=== PATIENT | male | born 1935 | race Caucasian/White ===

== ENCOUNTER 2022-08-31 03:59 | Day surgery (SDC) | payer BC, OTHER ==
[2022-08-30 12:05] VITALS: BMI 27.7
[~2022-08-31 03:59] MED LIST: BUPIVACAINE HCL/PF 0.5% (5MG/ML) 10 ML VIAL IJ ONE; LIDOCAINE HCL 1%, 10 MG/ML (20ML VIAL) NR ONE
[2022-08-31 06:29] VITALS: RESP 20
[2022-08-31] MEDS ORDERED: SUCCINYLCHOLINE CHLORIDE 200 MG/10 ML SYRINGE ONE (07:28)
[2022-08-31] MEDS ORDERED: LIDOCAINE HCL/PF (2%) 40 MG/2 ML VIAL ONE (07:28)
[2022-08-31] MEDS ORDERED: MIDAZOLAM HCL 2 MG/2 ML SINGLE DOSE VIAL ONE (07:28)
[2022-08-31] MEDS ORDERED: PROPOFOL 20 ML ONE (07:28)
[2022-08-31] MEDS ORDERED: LIDOCAINE HCL 1%, 10 MG/ML (20ML VIAL) ONE ×2 (07:30→09:17)
[2022-08-31] MEDS ORDERED: BUPIVACAINE HCL/PF 0.5% (5MG/ML) 10 ML VIAL ONE ×2 (07:30→09:17)
[2022-08-31] MEDS ORDERED: BUPIVACAINE HCL/PF 0.5% (5MG/ML) 10 ML VIAL IJ ONE (08:09)
[2022-08-31] MEDS ORDERED: LIDOCAINE HCL 1%, 10 MG/ML (20ML VIAL) NR ONE (08:09)
[2022-08-31] MEDS ORDERED: ceFAZolin SODIUM 1 GM VIAL ONE (08:15)
[2022-08-31] MEDS ORDERED: ceFAZolin 2 GRAM PREMIX BAG IVPB ONE (08:16)
[2022-08-31] MEDS ORDERED: LACTATED RINGERS SOLUTION 1,000 ML IV SCH (10:45)
[2022-08-31] MEDS ORDERED: oxyCODONE HCL 5 MG TABLET PO PRN (10:45)
[2022-08-31] MEDS ORDERED: ONDANSETRON 4 MG/2 ML VIAL IVPUSH PRN (10:45)
[2022-08-31 12:33] VITALS: BP 140/70; PULSE 70; TEMP 97
== END 2022-08-31 11:30 | disposition home or self-care (01) ==
LOC: JASU-SURG 03:59
PROVIDERS: ATTEND Orthopaedic Surgery
PROC: 0LN70ZZ Release Right Hand Tendon, Open Approach (ICD-10-PCS; principal; 2022-08-31 08:00)
DX: M65.331 Trigger finger, right middle finger (principal)
CPT/HCPCS: 88304-TC